=== PATIENT | female | born 1990 | race Caucasian/White ===

== ENCOUNTER 2021-04-17 14:38 | Emergency (ER) | payer BC ==
[2021-04-17 15:03] VITALS: BP 124/83; PULSE 90; RESP 18; TEMP 98.3
--- NOTE | 2021-04-17 15:52 | XR ---
EXAMINATION TYPE: XR ankle complete 3 views LT, XR foot complete 3 views LT DATE OF EXAM: 04/17/2021 Comparison: None Clinical History: 30-year-old female lateral foot and lateral malleoli are pain after injury Findings: Ankle: Ankle mortise is congruent with preservation of the distal tibiofibular overlap. Talar dome is intact . No acute fracture, subluxation, or dislocation. Subtalar joint align. No delineation to the Yantis s tendon. Foot: There is some dorsal hindfoot soft tissue swelling noted. No acute fracture, subluxation, dislocation seen. IMPRESSION (ankle and foot): 1. Some dorsal hindfoot soft tissue swelling. 2. Otherwise, no acute osseous abnormality seen.
--- NOTE | 2021-04-17 16:04 | ED ---
General Adult HPI - General Chief complaint: Extremity Injury, Lower Stated complaint: Left Foot injury, 37 Weeks Time Seen by Provider: 04/17/21 15:18 Source: patient Mode of arrival: ambulatory Limitations: no limitations - History of Present Illness Initial comments: 30-year-old female presents to the emergency room for a chief complaint of foot pain. Patient fell today after slipping on ice. She fell onto the left foot. Somewhat painful to walk on. Patient did not fall on her abdomen. She has no abdominal pain or vaginal bleeding. States she can feel baby moving and kicking. She did not hit her head.Patient has no other complaints at this time including shortness of breath, chest pain, abdominal pain, nausea or vomiting, headache, or visual changes. - Related Data Home Medications Medication Instructions Recorded Confirmed Aspirin EC [Ecotrin Low Dose] 81 mg PO HS 04/17/21 04/17/21 Pnv,Calcium 72/Iron/Folic Acid 1 tab PO HS 04/17/21 04/17/21 [ Plus Tablet] Allergies Allergy/AdvReac Type Severity Reaction Status Date / Time codeine AdvReac Nausea & Verified 04/17/21 15:52 Vomiting Review of Systems ROS Statement: Those systems with pertinent positive or pertinent negative responses have been documented in the HPI. ROS Other: All systems not noted in ROS Statement are negative. Past Medical History Past Medical History: No Reported History History of Any Multi-Drug Resistant Organisms: None Reported Additional Past Surgical History / Comment(s): wisdom teeth extraction Past Psychological History: No Psychological Hx Reported Smoking Status: Never smoker Past Alcohol Use History: None Reported Past Drug Use History: None Reported General Exam Limitations: no limitations General appearance: alert, in no apparent distress Head exam: Present: atraumatic Eye exam: Present: normal appearance, PERRL, EOMI. Absent: scleral icterus, conjunctival injection ENT exam: Present: normal exam, mucous membranes moist Neck exam: Present: normal inspection, full ROM. Absent: tenderness Respiratory exam: Present: normal lung sounds bilaterally. Absent: respiratory distress, wheezes Cardiovascular Exam: Present: regular rate, normal rhythm, normal heart sounds GI/Abdominal exam: Present: other (Gravid) Extremities exam: Present: full ROM (Full range of motion of the left foot.), tenderness (Minimal tenderness to the posterior left foot and dorsum of the left foot.), normal capillary refill (Capillary refill less than 2 seconds, DP pulse 2+ left lower extremity), joint swelling (Minimal edema lateral posterior foot.), other (Sensation intact left lower extremity) Neurological exam: Present: alert Course Vital Signs 04/17/21 14:59 Temperature 98.3 F Pulse Rate 90 Respiratory 18 Rate Blood Pressure 124/83 O2 Sat by Pulse 98 Oximetry Medical Decision Making - Medical Decision Making X-ray of the right foot and ankle show no acute osseous abnormality. Patient placed in a postop shoe. I did speak with Dr. Aleman about whether patient needs to go upstairs for monitoring. He does not feel as is necessary patient had absolutely no abdominal trauma. Patient is denying any abdominal trauma, abdominal pain. Patient is feeling baby taking and moving. At this time patient can be discharged home to follow up with primary care and orthopedics. She will return here for any worsening symptoms. Disposition Clinical Impression: Foot pain, left Disposition: HOME SELF-CARE Condition: Good Instructions (If sedation given, give patient instructions): Foot Contusion (ED) Additional Instructions: Take Tylenol as needed for pain. Wear postop shoe. Follow-up with orthopedics or primary care. Return to the emergency room for any worsening symptoms. Is patient prescribed a controlled substance at d/c from ED?: No Referrals: Benji Villegas MD [Primary Care Provider] - 1-2 days Ryan Green DO [Doctor of Osteopathic Medicine] - 1-2 days Time of Disposition: 16:21
== END 2021-04-17 17:02 | disposition home or self-care (01) ==
LOC: EC 14:38
DX: O26.893 Other specified pregnancy related conditions, third trimester (principal); Z3A.37 37 weeks gestation of pregnancy

== ENCOUNTER 2021-05-18 06:00 | Inpatient (IN) | payer BC ==
[2021-05-18] MEDS ORDERED: TERBUTALINE 1 MG/ML VIAL SQ PRN (06:55)
[2021-05-18] MEDS ORDERED: LIDOCAINE 1% (PF) 10 MG/ML (30 ML SDV) SQ PRN (06:55)
[2021-05-18] MEDS ORDERED: OXYTOCIN 10 UNIT/ML 1 ML VIAL IM PRN (06:55)
[2021-05-18] MEDS ORDERED: CARBOPROST TROMETHAMINE 250 MCG/ML 1 ML AMP IM PRN (06:55)
[2021-05-18] MEDS ORDERED: METHYLERGONOVINE 0.2 MG/ML 1 ML AMP IM PRN (06:55)
[2021-05-18] MEDS ORDERED: OXYTOCIN 30 UNITS/500 ML NS 30 UNIT in SALINE 1 500ML.BAG IV SCH ×2 (07:00→20:00)
[2021-05-18] MEDS: LACTATED RINGERS 1,000 ML IV SCH ×3 (07:08→14:15)
[2021-05-18 07:18] LABS: Basophils % (A) 0 %; Eosinophils # (A) 0.1 k/uL (0-0.7); Eosinophils % (A) 1 %; HCT 41.1 % (34.0-46.0); HGB 13.9 gm/dL (11.4-16.0); Lymphocytes # (A) 1.6 k/uL (1.0-4.8); Lymphocytes % (A) 15 %; MCH 33.4 pg (25.0-35.0); MCHC 33.9 g/dL (31.0-37.0); MCV 98.3 fL (80.0-100.0); Mean Platelet Volume 8.5; Monocytes # (A) 0.6 k/uL (0-1.0); Monocytes % (A) 5 %; Neutrophils # (A) 8.2 k/uL (1.3-7.7); Neutrophils % (A) 78 %; Platelet Count 214 k/uL (150-450); RBC 4.18 m/uL (3.80-5.40); RDW 12.7 % (11.5-15.5); WBC 10.6 k/uL (3.8-10.6)
[2021-05-18] MEDS ORDERED: BUTORPHANOL 1 MG/ML 1 ML VIAL IV PRN (08:42)
--- NOTE | 2021-05-18 08:45 | P.HPOB ---
History of Present Illness H&P Date: 05/18/21 Chief Complaint: 40-6/7 weeks, induction The patient is a 30-year-old 1 para 0 admitted at 40-6/7 weeks as established by last menstrual period and confirmed by 20 week ultrasound per she is admitted for induction of labor with all signs reassuring. There is a categ ory 1 heart rate tracing. Her has been entirely uncomplicated and group B strep status is negative. Obstetrical history: 1 para 0 with current statistics listed in history present illness. EDC of 05/12/2021 was established by last menstrual period and confirmed by 20 week ultrasound. Laboratory workup demonstrates a blood type of O+ with a negative antibody screen. Rubella status is immune. Remainder of laboratory workup was within normal limits. One hour Glucola was normal and group B strep status is negative Gynecologic history: Unremarkable with no history of any infections to include STDs. Review of Systems Review of systems is confined to history of present illness. Past Medical History Past Medical History: No Reported History History of Any Multi-Drug Resistant Organisms: None Reported Additional Past Surgical History / Comment(s): wisdom teeth extraction Past Anesthesia/Blood Transfusion Reactions: No Reported Reaction Past Psychological History: No Psychological Hx Reported Smoking Status: Never smoker Past Alcohol Use History: None Reported Past Drug Use History: None Reported Medications and Allergies Home Medications Medication Instructions Recorded Confirmed Type Aspirin EC [Ecotrin Low Dose] 81 mg PO HS 04/17/21 05/18/21 History Pnv,Calcium 72/Iron/Folic Acid 1 tab PO HS 04/17/21 05/18/21 History [ Plus Tablet] Allergies Allergy/AdvReac Type Severity Reaction Status Date / Time codeine AdvReac Nausea & Verified 05/18/21 06:55 Vomiting Exam Vital Signs Temp Pulse Resp BP Pulse Ox 05/18/21 07:04 98.2 F 109 H 16 143/87 99 Intake and Output 05/17/21 05/18/21 05/18/21 22:59 06:59 14:59 Other: Weight 82.554 kg 82.554 kg In general, this is a well-developed, well-nourished white female in no acute distress. Her heart has a regular rhythm and rate without murmur. Her lungs clear to auscultation bilaterally in all condon. Her abdomen is gravid, nondistended, has normal active bowel sounds, soft, nontender, and without any palpable masses aside from uterine fundus. Her extremities are without any cyanosis, clubbing, or edema and are nontender to palpation bilaterally. Digital cervical examination demonstrates her surgery 2+ centimeters dilated, 60% effaced, with the vertex in presentation at -2 station. Artificial rupture of membranes is carried out demonstrating clear fluid. Results Result Diagrams: 05/18/21 07:00 Abnormal Lab Results - Last 24 Hours (Table) 05/18/21 Range/Units 07:00 Neutrophils # 8.2 H (1.3-7.7) k/uL Assessment and Plan (1) Post-dates Current Visit: Yes Status: Acute Code(s): O48.0 - POST-TERM SNOMED Code(s): 82805390 Plan: The patient has been admitted for Pitocin induction which has been started. She has undergone artificial rupture of membranes. She will have close maternal and surveillance and expectant management will be practice. She is a good candidate for either IV or epidural analgesia, whichever she may choose.
[2021-05-18] MEDS ORDERED: ROPIVACAINE 100 MG, fentaNYL (PF). 200 MCG in SODIUM CHLORIDE 0.9% 76 ML EPIDURAL ONE (11:37)
[2021-05-18] MEDS ORDERED: CITRIC ACID-SODIUM CITRATE 15 ML CUP PO ONE (19:00)
[2021-05-18] MEDS ORDERED: OXYTOCIN 30 UNITS/500 ML NS BAG IV ONE (19:14)
[2021-05-18] MEDS ORDERED: ONDANSETRON 4 MG/2 ML VIAL ONE (19:14)
[2021-05-18] MEDS ORDERED: MORPHINE SULFATE (PF) 0.3 MG/0.3 ML SYR ONE (19:14)
[2021-05-18] MEDS ORDERED: KETOROLAC 15 MG/ML 1 ML VIAL ONE (19:14)
[2021-05-18] MEDS ORDERED: HYDROmorphone 2 MG TAB PO PRN ×2 (20:00)
[2021-05-18] MEDS ORDERED: ZOLPIDEM 5 MG TAB PO PRN (20:00)
[2021-05-18] MEDS ORDERED: diphenhydrAMINE 25 MG CAP PO PRN (20:00)
[2021-05-18] MEDS ORDERED: ONDANSETRON 4 MG/2 ML VIAL IVP PRN (20:00)
[2021-05-18] MEDS ORDERED: diphenhydrAMINE 50 MG/ML 1 ML VIAL IVP PRN ×2 (20:00)
[2021-05-18] MEDS ORDERED: NALOXONE 0.4 MG/ML 1 ML VIAL IV PRN (20:00)
[2021-05-18] MEDS ORDERED: SIMETHICONE 80 MG CHEWABLE PO PRN (20:00)
[2021-05-18] MEDS ORDERED: diphenhydrAMINE 50 MG CAP PO PRN (20:00)
[2021-05-18] MEDS ORDERED: METOCLOPRAMIDE 5 MG/ML 2 ML VIAL IVP PRN (20:00)
[2021-05-18] MEDS ORDERED: LANOLIN CREAM 5 GM TUBE TOPICAL PRN (20:00)
--- NOTE | 2021-05-18 20:09 | P.OP ---
Date of Procedure: 05/18/21 Preoperative Diagnosis: #1. 40-6/7 weeks, induction #2. Nonreassuring heart tracing (category 3) #3. intolerance of labor Postoperative Diagnosis: Same Procedure(s) Performed: #1. Primary low-transverse section Anesthesia: epidural Surgeon: Jose M Aleman Bell Person #1: Alexa Herrera Estimated Blood Loss (ml): 300 IV fluids (ml): 800 Urine output (ml): 100 Pathology: none sent Condition: stable Disposition: floor Operative Findings: Preoperatively, the patient had had occasional episodes of category 2 heart rate tracing throughout the day which typically resolved 2 category 1. She made slow progress through the end of the active phase of labor but ultimately reached complete. She began pushing and began to experience deep repetitive late decelerations following each push. She was asked to stop pushing as she was comfortable with an epidural in place allow the baby to recover and labored down to some extent. Following the approximately 20 minutes of pushing, the baseline heart rate elevated from 140s to approximately 160s with repetitive subtle late decelerations. The patient was counseled regarding intolerance of further labor and agreed to proceed to the operating room. She was taken there and delivered by primary of a viable 7 lbs. 15 oz. baby boy with Apgars of 9 at 1 minute and 9 at 5 minutes delivered in the left occiput transverse position. There was moderate to thick meconium-stained fluid noted where she had had clear fluid earlier in the day. The placenta was delivered manually, intact, and grossly normal with a grossly normal three-vessel cord. The uterus, tubes, and ovaries were entirely normal though there was a very small roughly 1 cm subserosal fibroid on the right anterior fundal portion of the uterus. Description of Procedure: The patient was prepped and draped in usual fashion after epidural anesthesia was bolused by the anesthesiologist. A Pfannenstiel incision was made and extended into the abdominal cavity without difficulty. The bladder peritoneum was elevated, incised, and reflected distally. A 2 cm incision was made in the transverse plane of the lower uterine segment to enter the uterus at which time moderately meconium-stained fluid was encountered. The head was encountered deep in the pelvis and was delivered up and through the incision where the nose and mouth were thoroughly suctioned prior to delivery of the remainder of the infant. The infant was then delivered onto the field where the cord was doubly clamped, cut, and the infant passed resuscitative measures with weight and Apgars as noted above. A segment of cord was doubly clamped, cut, and set aside should cord gases become necessary. The placenta was delivered manually and intact as noted above. The uterus was exteriorized and the interior cavity uterus swept of any remaining placental or membranous fragments. The margins of the uterine incision were grasped with Gusman clamps and the incision closed in 2 layers. The first layer was a running locking stitch of 0 chromic catgut followed by a running imbricating stitch of 0 chromic catgut, each from margin to margin. Any small points of bleeding were then made hemostatic with the Bovie. The posterior cul-de-sac was suctioned with a guard followed by laparotomy sponge. The findings of the uterus tubes and ovaries are as noted above. The uterus was replaced within the abdominal cavity and the gutters swept of any remaining blood, fluid, or clot. The incision was reexamined and found to be hemostatic. The parietal peritoneum was loosely reapproximated in the layer of muscles examined and found to be hemostatic. The fascia was closed with 2 running stitches of 0 Vicryl proceeding from the later al margins to the midpoint. The subcutaneous tissues were irrigated, made hemostatic with the Bovie, and reapproximated with a running stitch of 30 plain catgut. The skin was reapproximated with a running subcuticular stitch of 4-0 Vicryl. Estimated blood loss for the case was approximately 300 mL. There were no complications. All sponge, instrument, and needle counts were correct. The patient tolerated the procedure well and proceeded to the recovery room in stable condition. Both mother and are resting comfortably in recovery.
[2021-05-19] MEDS: KETOROLAC 30 MG/ML 1 ML VIAL IVP PRN ×3 (01:52→16:17)
[2021-05-19] MEDS: LACTATED RINGERS 1,000 ML IV SCH ×5 (01:53→12:05)
[2021-05-19] MEDS: SENNOSIDES-DOCUSATE SODIUM 1 EACH TAB PO SCH ×3 (02:04→20:56)
[2021-05-19] MEDS: ACETAMINOPHEN TAB 500 MG TAB PO SCH ×4 (02:05→20:56)
[2021-05-19] MEDS: IBUPROFEN 600 MG TAB PO SCH ×4 (02:05→22:14)
[2021-05-19 06:33] LABS: Basophils % (A) 0 %; Eosinophils # (A) 0.1 k/uL (0-0.7); Eosinophils % (A) 1 %; HCT 36.9 % (34.0-46.0); HGB 12.2 gm/dL (11.4-16.0); Lymphocytes # (A) 1.2 k/uL (1.0-4.8); Lymphocytes % (A) 8 %; MCHC 32.9 g/dL (31.0-37.0); Macrocytosis Slight; Mean Platelet Volume 8.7; Monocytes # (A) 0.7 k/uL (0-1.0); Monocytes % (A) 5 %; Neutrophils # (A) 13.4 k/uL (1.3-7.7); Neutrophils % (A) 86 %; Platelet Count 198 k/uL (150-450); RBC 3.57 m/uL (3.80-5.40); RDW 13.2 % (11.5-15.5); WBC 15.7 k/uL (3.8-10.6)
[2021-05-19 06:45] LABS: MCV 103.4 fL (80.0-100.0)
--- NOTE | 2021-05-19 09:28 | P.PN ---
Progress Note - Text 05/19/21 657am 30-year-old female status post . Patient received Duramorph why the epidural, patient seen and evaluated this morning for postop pain control with an VAS of 3. No complains of nausea vomiting or pruritus.
--- NOTE | 2021-05-19 09:31 | P.PNOBGPC ---
Subjective - Subjective Patient reports: Reports appetite normal, Reports voiding normally, Reports pain well controlled, Reports ambulating normally : doing well, nursing well Objective - Vital Signs Latest vital signs: Vital Signs Temp Pulse Resp BP Pulse Ox 05/19/21 08:00 98.7 F 97 16 110/76 99 05/19/21 04:00 97.9 F 92 16 103/65 97 05/18/21 22:54 98.7 F 99 16 125/72 05/18/21 22:06 98.5 F 82 16 133/62 05/18/21 21:36 98.0 F 88 16 132/72 05/18/21 21:06 98.2 F 97 16 133/69 05/18/21 20:51 82 16 125/73 05/18/21 20:36 97 16 141/75 05/18/21 20:21 98.1 F 82 16 140/73 05/18/21 20:06 98.1 F 93 16 133/69 Intake and Output 05/18/21 05/19/21 05/19/21 22:59 06:59 14:59 Intake Total 350 Output Total 1425 350 Balance -1075 -350 Intake: IV 200 Oral 150 Output: Urine 600 350 Uretheral (Snider) 350 Estimated Blood Loss 825 - Exam Extremities: Present: normal Abdomen: Present: normal appearance, soft. Absent: distention, tenderness Incision: Present: normal, dry, intact Uterus: Present: normal, firm (The uterine fundus is dystonic and minimally tender at the umbilicus.) - Labs Labs: Abnormal Lab Results - Last 24 Hours (Table) 05/19/21 Range/Units 05:45 WBC 15.7 H (3.8-10.6) k/uL RBC 3.57 L (3.80-5.40) m/uL MCV 103.4 H D (80.0-100.0) fL Neutrophils # 13.4 H (1.3-7.7) k/uL Assessment and Plan (1) Post-dates Current Visit: Yes Status: Acute Code(s): O48.0 - POST-TERM SNOMED Code(s): 59609806 (2) Status post section Current Visit: Yes Status: Acute Code(s): Z98.891 - HISTORY OF UTERINE SCAR FROM PREVIOUS SURGERY SNOMED Code(s): 633326260 Plan: Continue routine and postoperative care. I have encouraged the patient annually in the hallways at least 4 times daily. I would anticipate discharge home tomorrow pending no complications.
[2021-05-20] MEDS: IBUPROFEN 600 MG TAB PO SCH ×2 (01:54→07:53)
[2021-05-20 02:42] VITALS: RESP 16
[2021-05-20] MEDS: ACETAMINOPHEN TAB 500 MG TAB PO SCH (03:20)
[2021-05-20] MEDS: LACTATED RINGERS 1,000 ML IV SCH (03:21)
--- NOTE | 2021-05-20 08:09 | P.DS ---
Providers Date of admission: 05/18/21 06:45 Expected date of discharge: 05/20/21 Attending physician: Jose M Aleman Primary care physician: Stated None - Discharge Diagnosis(es) (1) Meconium in amniotic fluid affecting management of mother Current Visit: Yes Status: Acute (2) Non-reassuring electronic monitoring tracing Current Visit: Yes Status: Acute (3) Post-dates Current Visit: Yes Status: Acute (4) Status post section Current Visit: Yes Status: Acute Hospital Course: This is a 30-year-old 1 now para 1 woman who is admitted for postdates induction of labor at 40-6/7 weeks' gestation. She had an uncomplicated . Following admission she underwent a Pitocin induction of labor with artificial rupture of membranes. On admission she had category 1 heart tones. She ultimately progressed to complete cervical dilation however had category 3 heart tones in the third stage of labor. Decision was made to proceed to primary low transverse section. Findings at the time of surgery were significant for a liveborn male with Apgars of 9 at 1 minute and 9 at 5 minutes weighing 7 lbs. 15 oz. Thick meconium-stained fluid was noted. Please see the operative report for complete details. The patient's postoperative course was unremarkable. By postoperative day #1 she was ambulating and voiding without difficulty. Her vital signs were stable. Her postoperative hemoglobin was stable. She was tolerating a general diet. By postoperative day #2 she continued to do very well. She had minimal lochia. Her incision was intact and well-healing. She was therefore discharged home with routine instructions for postoperative care and follow-up. Procedures: Primary low transverse section Patient Condition at Discharge: Good Plan - Discharge Summary New Discharge Prescriptions: New Ibuprofen [Motrin] 600 mg PO Q6H tab Sennosides-Docusate Sodium [Senokot-S] 2 each PO BID@0800,2000 tab Acetaminophen Tab [Tylenol] 1,000 mg PO Q6H tab Continue Pnv,Calcium 72/Iron/Folic Acid [ Plus Tablet] 1 tab PO HS Discontinued Aspirin EC [Ecotrin Low Dose] 81 mg PO HS Discharge Medication List Pnv,Calcium 72/Iron/Folic Acid [ Plus Tablet] 1 tab PO HS 04/17/21 [History] Acetaminophen Tab [Tylenol] 1,000 mg PO Q6H tab 05/20/21 [Rx] Ibuprofen [Motrin] 600 mg PO Q6H tab 05/20/21 [Rx] Sennosides-Docusate Sodium [Senokot-S] 2 each PO BID@0800,2000 tab 05/20/21 [Rx] Follow up Appointment(s)/Referral(s): Jose M Aleman MD [STAFF PHYSICIAN] - 2 Weeks Activity/Diet/Wound Care/Special Instructions: Follow-up in 2 weeks after surgery in the office. Call the office with any concerning signs or symptoms including fever greater than 101, severe abdominal pain, heavy vaginal bleeding, signs of wound infection, increased swelling or redness of the lower extremities, signs of depression. No driving f or 2 weeks after surgery. No heavy lifting or vigorous activity until reevaluated in the office. No intercourse for 6 weeks after delivery. Discharge Disposition: HOME SELF-CARE
[2021-05-20 08:42] VITALS: BP 112/73; PULSE 79; TEMP 97.5
[2021-05-20] MEDS: SENNOSIDES-DOCUSATE SODIUM 1 EACH TAB PO SCH (08:42)
== END 2021-05-20 11:49 | disposition home or self-care (01) | DRG 788 ==
LOC: 4FBP 06:45
PROVIDERS: ADMIT Obstetrics & Gynecology; ATTEND Obstetrics & Gynecology
PROC: 10907ZC Drainage of Amniotic Fluid, Therapeutic from Products of Conception, Via Natural or Artificial Opening (ICD-10-PCS; principal; 2021-05-18 19:33)
PROC: 10D00Z1 Extraction of Products of Conception, Low, Open Approach (ICD-10-PCS; principal; 2021-05-18 19:33)
PROC: 3E033VJ Introduction of Other Hormone into Peripheral Vein, Percutaneous Approach (ICD-10-PCS; principal; 2021-05-18 19:33)
DX: O48.0 Post-term pregnancy (principal); O34.13 Maternal care for benign tumor of corpus uteri, third trimester; D25.2 Subserosal leiomyoma of uterus; O76 Abnormality in fetal heart rate and rhythm complicating labor and delivery; O77.0 Labor and delivery complicated by meconium in amniotic fluid; Z3A.40 40 weeks gestation of pregnancy; Z37.0 Single live birth; Z98.890 Other specified postprocedural states
CPT/HCPCS: 85025; 86850; 86900; 86901